=== PATIENT | female | born 1995 | race Caucasian/White ===

== ENCOUNTER 2019-03-24 12:17 | Emergency (ER) | payer OTHER ==
[~2019-03-24] VITALS: Ht 162.6 cm; Wt 52.3 kg
[~2019-03-24 12:17] MED LIST: NO HOME MEDICATIONS
[2019-03-24 12:28] VITALS: BP 134/87; TEMP 98.6
[2019-03-24] MEDS ORDERED: PRENATAL FORMU1 EAC3 PO (12:33)
[2019-03-24 12:53] LABS: BASO % 0.2 % (0.0-2.0); EOS % 0.5 % (0-4.0); GRAN # 5.9 (1.4-6.5); GRAN % 71.5 % (42.2-75.2); HEMATOCRIT 40.2 % (37.0-47.0); HEMOGLOBIN 13.7 g/dl (12.5-16.0); LYMPH # 1.9 (1.2-3.4); LYMPH % 23.2 % (20.0-51.0); MEAN CELL VOLUME 91 fl (80.0-100.0); MEAN CORPUSCULAR HEMOGLOBIN 31 pg (27.0-31.0); MEAN CORPUSCULAR HGB CONC 34 g/dl (33.0-37.0); MEAN PLATELET VOLUME 9.2 fl (7.4-10.4); MONO # 0.4 (0.1-0.6); MONO % 4.2 % (1.7-9.3); PLATELET COUNT 206 K/mm3 (130-400); RED BLOOD COUNT 4.42 M/mm3 (4.10-5.30)
[2019-03-24 13:50] VITALS: PULSE 86
== END 2019-03-24 13:50 | disposition home or self-care (01) ==
LOC: COL.ER 12:17
PROVIDERS: Emergency Medicine
DX: O03.4 Incomplete spontaneous abortion without complication (principal)